=== PATIENT | female | born 1985 | race Hispanic/Latino ===

== ENCOUNTER 2018-06-29 20:40 | Emergency (ER) | payer OTHER, MEDICARE ==
[2018-06-29] MEDS ORDERED: CEFTRIAXONE SODIUM 500 MG VIAL ONE (21:02)
[2018-06-29] MEDS ORDERED: AZITHROMYCIN 250 MG TABLET PO ONE (21:03)
[2018-06-29] MEDS ORDERED: LIDOCAINE HCL MPF 1% 5ML VIAL ONE (21:03)
[2018-06-29 21:05] LABS: APPEARANCE,URINE Clear (CLEAR); BILIRUBIN,URINE Negative (NEGATIVE); COLOR,URINE Yellow (YELLOW); GLUCOSE, URINE (UA) Negative (NEGATIVE); KETONES,URINE Negative (NEGATIVE); LEUKOCYTE ESTERASE ,URINE Negative (NEGATIVE); NITRATE,URINE Negative (NEGATIVE); OCCULT BLOOD,URINE Negative (NEGATIVE); PROTEIN,URINE Negative (NEGATIVE); UROBILINOGEN,URINE 0.2 mg/dL (0.2-1.0)
[2018-06-29 21:14] LABS: AMPHET/METH SCREEN,URINE NEGATIVE (NEGATIVE); BARBITURATE SCREEN, URINE POSITIVE (NEGATIVE); BENZODIAZEPINES SCREEN,URINE NEGATIVE (NEGATIVE); CANNABINOID SCREEN,URINE NEGATIVE (NEGATIVE); COCAINE SCREEN,URINE NEGATIVE (NEGATIVE); HCG,QUAL RESULT NEGATIVE (NEGATIVE); OPIATE SCREEN,URINE NEGATIVE (NEGATIVE); PHENCYCLIDINE SCREEN,URINE NEGATIVE (NEGATIVE)
== END 2018-06-29 22:00 | disposition home or self-care (01) ==
LOC: EDH 20:40
DX: N34.1 Nonspecific urethritis (principal); J45.909 Unspecified asthma, uncomplicated; G43.909 Migraine, unspecified, not intractable, without status migrainosus; Z87.891 Personal history of nicotine dependence
CPT/HCPCS: 80305; 81003; 81025; 87486; 87797; 96372; 99284; J0696; J3490

== ENCOUNTER 2018-09-04 19:21 | Emergency (ER) | payer OTHER, MEDICARE ==
[2018-09-04] MEDS ORDERED: ONDANSETRON HCL 4 MG/2 ML VIAL ONE (19:46)
[2018-09-04] MEDS ORDERED: KETOROLAC TROMETHAMINE 30MG/ML ONE (19:46)
[2018-09-04 19:48] LABS: BASOPHILS % (AUTO) 0.4 % (0.0-5.0); EOSINOPHILS % (AUTO) 0.8 % (0.0-8.0); HEMATOCRIT 42.9 % (36-48); LYMPHOCYTES % (AUTO) 7.7 % (21.0-51.0); MEAN CORPUSCULAR HGB CONC 32.9 g/dL (32.0-36.0); MEAN CORPUSCULAR VOLUME 85.3 fL (79-99); MONOCYTES % (AUTO) 2.6 % (3.0-13.0); NEUTROPHILS % (AUTO) 88.5 % (40.0-77.0); PLATELET COUNT (AUTO) 220 K/uL (130-400); RED BLOOD CELL COUNT(AUTO) 5.03 MIL/uL (4.00-5.50); RED CELL DISTRIBUTION WIDTH 14.7 % (11.0-15.5); WHITE BLOOD COUNT (AUTO) 12.9 K/uL (4.8-10.8)
[2018-09-04 19:49] LABS: APPEARANCE,URINE Clear (CLEAR); BILIRUBIN,URINE Negative (NEGATIVE); COLOR,URINE Yellow (YELLOW); GLUCOSE, URINE (UA) Negative (NEGATIVE); KETONES,URINE Negative (NEGATIVE); LEUKOCYTE ESTERASE ,URINE Small (NEGATIVE); NITRATE,URINE Negative (NEGATIVE); OCCULT BLOOD,URINE Trace (NEGATIVE); PROTEIN,URINE Negative (NEGATIVE); UROBILINOGEN,URINE 0.2 mg/dL (0.2-1.0)
[2018-09-04 19:52] LABS: HCG,QUAL RESULT NEGATIVE (NEGATIVE)
[2018-09-04 20:07] LABS: CREATININE 0.8 mg/dL (0.5-1.5); POTASSIUM 4.2 mmol/L (3.5-5.1)
[2018-09-04 20:09] LABS: ALBUMIN 3.8 g/dL (3.5-5.0); BILIRUBIN,TOTAL 0.4 mg/dL (0.2-1.0); RBC,URINE 0-1 /HPF (0-1); TOTAL PROTEIN, SERUM 8.3 g/dL (6.0-8.3)
[2018-09-04 20:10] LABS: BACTERIA,URINE Few /HPF (None Seen); WBC,URINE 0-1 /HPF (0-1)
[2018-09-04] MEDS ORDERED: SODIUM CHLORIDE 0.9% 1000ML 1,000 ML IV ONE (20:51)
[2018-09-04] MEDS ORDERED: DICYCLOMINE HCL 10 MG/ML 2ML AMP IM ONE (20:51)
== END 2018-09-04 22:04 | disposition home or self-care (01) ==
LOC: EDH 19:21
DX: K52.9 Noninfective gastroenteritis and colitis, unspecified (principal); J45.909 Unspecified asthma, uncomplicated; Z72.0 Tobacco use; Z90.49 Acquired absence of other specified parts of digestive tract
CPT/HCPCS: 36415; 74176; 80053; 81001; 81025; 82150; 83690; 85025; 93005; 96361; 96372; 96374; 96375; 99284; J0500; J1885; J2405; J7030

== ENCOUNTER 2018-12-14 19:58 | Emergency (ER) | payer OTHER, MEDICARE ==
[2018-12-14] MEDS ORDERED: MAG HYDROX/AL HYDROX/SIMETH ES 30 ML SUSP UDCUP ONE (20:44)
[2018-12-14] MEDS ORDERED: LIDOCAINE HCL 2% VISCOUS 15 ML UDCUP ONE (20:44)
[2018-12-14 21:06] LABS: BASOPHILS % (AUTO) 0.6 % (0.0-5.0); EOSINOPHILS % (AUTO) 0.9 % (0.0-8.0); HEMATOCRIT 37.7 % (36-48); LYMPHOCYTES % (AUTO) 26.2 % (21.0-51.0); MEAN CORPUSCULAR HEMOGLOBIN 29.5 pg (27.0-33.0); MEAN CORPUSCULAR HGB CONC 34.9 g/dL (32.0-36.0); MEAN CORPUSCULAR VOLUME 84.6 fL (79-99); NEUTROPHILS % (AUTO) 63.3 % (40.0-77.0); NUCLEATED RED BLOOD CELLS 0.1 % (0.0-0.19); PLATELET COUNT (AUTO) 263 K/uL (130-400); RED BLOOD CELL COUNT(AUTO) 4.46 MIL/uL (4.00-5.50); RED CELL DISTRIBUTION WIDTH 14.6 % (11.0-15.5); WHITE BLOOD COUNT (AUTO) 8.4 K/uL (4.8-10.8)
[2018-12-14 21:16] LABS: CREATININE 0.7 mg/dL (0.5-1.5); POTASSIUM 3.3 mmol/L (3.5-5.1)
[2018-12-14 21:19] LABS: APPEARANCE,URINE CLEAR (CLEAR); BILIRUBIN,URINE NEGATIVE (NEGATIVE); COLOR,URINE YELLOW (YELLOW); GLUCOSE, URINE (UA) NEGATIVE (NEGATIVE); KETONES,URINE NEGATIVE (NEGATIVE); LEUKOCYTE ESTERASE ,URINE NEGATIVE (NEGATIVE); NITRATE,URINE NEGATIVE (NEGATIVE); OCCULT BLOOD,URINE NEGATIVE (NEGATIVE); PROTEIN,URINE TRACE mg/dL (NEGATIVE); UROBILINOGEN,URINE 0.2 mg/dL (0.2-1.0)
[2018-12-14 21:21] LABS: ALBUMIN 3.8 g/dL (3.5-5.0); BILIRUBIN,TOTAL 0.4 mg/dL (0.2-1.0); TOTAL PROTEIN, SERUM 7.5 g/dL (6.0-8.3)
[2018-12-14 21:25] LABS: HCG,QUAL RESULT NEGATIVE (NEGATIVE)
[2018-12-14 22:03] LABS: BACTERIA,URINE Few /HPF (None Seen); MUCUS,URINE Moderate LPF (None Seen); RBC,URINE 0-1 /HPF (0-1); SQUAMOUS EPITHELIAL CELL,UR Few /HPF (0-2); WBC,URINE 0-1 /HPF (0-1)
[2018-12-14] MEDS ORDERED: FAMOTIDINE/PF 20 MG/2 ML VIAL IV ONE (22:44)
[2018-12-14] MEDS ORDERED: KETOROLAC TROMETHAMINE 15MG/ML ONE (22:44)
== END 2018-12-14 23:26 | disposition home or self-care (01) ==
LOC: EDH 19:58
DX: K29.00 Acute gastritis without bleeding (principal); J45.909 Unspecified asthma, uncomplicated; G43.909 Migraine, unspecified, not intractable, without status migrainosus; Z90.49 Acquired absence of other specified parts of digestive tract
CPT/HCPCS: 36415; 80053; 81001; 81025; 83690; 85025; 96361; 96374; 96375; 99284; J1885; J3490

== ENCOUNTER 2019-02-06 14:32 | Emergency (ER) | payer OTHER, MEDICARE ==
[2019-02-06 15:22] LABS: BASOPHILS % (AUTO) 0.2 % (0.0-5.0); EOSINOPHILS % (AUTO) 0.5 % (0.0-8.0); LYMPHOCYTES % (AUTO) 13.9 % (21.0-51.0); MEAN CORPUSCULAR HEMOGLOBIN 28.6 pg (27.0-33.0); MEAN CORPUSCULAR HGB CONC 34.1 g/dL (32.0-36.0); NEUTROPHILS % (AUTO) 80.4 % (40.0-77.0); PLATELET COUNT (AUTO) 215 K/uL (130-400); RED BLOOD CELL COUNT(AUTO) 4.41 MIL/uL (4.00-5.50); RED CELL DISTRIBUTION WIDTH 14.3 % (11.0-15.5); WHITE BLOOD COUNT (AUTO) 7.5 K/uL (4.8-10.8)
[2019-02-06 15:24] LABS: APPEARANCE,URINE SL CLOUDY (CLEAR); BILIRUBIN,URINE MODERATE (NEGATIVE); COLOR,URINE YELLOW (YELLOW); GLUCOSE, URINE (UA) NEGATIVE (NEGATIVE); KETONES,URINE 5 mg/dL (NEGATIVE); LEUKOCYTE ESTERASE ,URINE NEGATIVE (NEGATIVE); NITRATE,URINE NEGATIVE (NEGATIVE); OCCULT BLOOD,URINE TRACE-INTACT (NEGATIVE); PROTEIN,URINE 30 mg/dL (NEGATIVE)
[2019-02-06 15:26] LABS: HCG,QUAL RESULT NEGATIVE (NEGATIVE)
[2019-02-06 15:32] LABS: AMPHET/METH SCREEN,URINE NEGATIVE (NEGATIVE); BARBITURATE SCREEN, URINE POSITIVE (NEGATIVE); BENZODIAZEPINES SCREEN,URINE NEGATIVE (NEGATIVE); CANNABINOID SCREEN,URINE NEGATIVE (NEGATIVE); COCAINE SCREEN,URINE NEGATIVE (NEGATIVE); OPIATE SCREEN,URINE POSITIVE (NEGATIVE); PHENCYCLIDINE SCREEN,URINE NEGATIVE (NEGATIVE)
[2019-02-06 15:34] LABS: ALBUMIN 3.3 g/dL (3.5-5.0); BILIRUBIN,TOTAL 0.8 mg/dL (0.2-1.0); CREATININE 0.8 mg/dL (0.5-1.5); TOTAL PROTEIN, SERUM 6.9 g/dL (6.0-8.3)
[2019-02-06 15:42] LABS: RBC,URINE 0-1 /HPF (0-1)
[2019-02-06] MEDS ORDERED: MAGNESIUM OXIDE 400 MG TABLET PO ONE (15:42)
[2019-02-06] MEDS ORDERED: ONDANSETRON HCL 4 MG/2 ML VIAL ONE (15:42)
[2019-02-06 15:43] LABS: BACTERIA,URINE Few /HPF (None Seen); MUCUS,URINE Moderate LPF (None Seen); SQUAMOUS EPITHELIAL CELL,UR Few /HPF (0-2)
[2019-02-06] MEDS ORDERED: POTASSIUM CHLORIDE 20 MEQ ERTAB PO ONE (15:43)
[2019-02-06] MEDS ORDERED: FAMOTIDINE/PF 20 MG/2 ML VIAL IV ONE (15:43)
[2019-02-09 07:20] LABS: HEPATITIS A ANTIBODY IGM Negative (Negative); HEPATITIS B CORE IGM Negative (Negative); HEPATITIS Bs ANTIGEN SCREEN P Negative (Negative)
== END 2019-02-06 17:30 | disposition home or self-care (01) ==
LOC: EDH 14:32
DX: K75.9 Inflammatory liver disease, unspecified (principal); E87.6 Hypokalemia; R10.13 Epigastric pain; R11.2 Nausea with vomiting, unspecified; J45.909 Unspecified asthma, uncomplicated; G43.909 Migraine, unspecified, not intractable, without status migrainosus; Z90.49 Acquired absence of other specified parts of digestive tract; Z79.899 Other long term (current) drug therapy
CPT/HCPCS: 36415; 76705; 80053; 80074; 80305; 81001; 81025; 83690; 85025; 96374; 96375; 99285; J2405; J3490

== ENCOUNTER 2019-02-25 19:29 | Emergency (ER) | payer OTHER, MEDICARE ==
[2019-02-25] MEDS ORDERED: ONDANSETRON ODT 4 MG TAB ONE (20:34)
[2019-02-25] MEDS ORDERED: DiphenhydrAMINE HCL 50 MG/ML VIAL ONE (20:56)
[2019-02-25] MEDS ORDERED: KETOROLAC TROMETHAMINE 15MG/ML ONE (21:00)
== END 2019-02-25 22:11 | disposition home or self-care (01) ==
LOC: EDH 19:29
DX: R51 Headache (principal); G89.29 Other chronic pain; J45.909 Unspecified asthma, uncomplicated; Z90.49 Acquired absence of other specified parts of digestive tract; Z72.0 Tobacco use; Z88.6 Allergy status to analgesic agent
CPT/HCPCS: 70450; 81025; 96372 ×2; 99285; J1200; J1885

== ENCOUNTER 2019-05-27 17:08 | Emergency (ER) | payer OTHER, MEDICARE ==
[2019-05-27] MEDS ORDERED: RANITIDINE HCL 15 MG/1 ML ONE (18:18)
[2019-05-27] MEDS ORDERED: ONDANSETRON ODT 4 MG TAB ONE (18:19)
== END 2019-05-27 18:59 | disposition left against medical advice (07) ==
LOC: EDH 17:08
DX: R10.84 Generalized abdominal pain (principal); R19.7 Diarrhea, unspecified; R11.10 Vomiting, unspecified; J45.909 Unspecified asthma, uncomplicated; G43.909 Migraine, unspecified, not intractable, without status migrainosus; Z88.6 Allergy status to analgesic agent; Z90.49 Acquired absence of other specified parts of digestive tract

== ENCOUNTER 2021-11-26 10:55 | Emergency (ER) | payer OTHER, MEDICARE ==
[~2021-11-26] VITALS: Ht 165.1 cm; Wt 70.3 kg
[2021-11-26 11:48] LABS: APPEARANCE,URINE Clear (CLEAR); BILIRUBIN,URINE Negative (NEGATIVE); COLOR,URINE Yellow (YELLOW); GLUCOSE, URINE (UA) Negative (NEGATIVE); KETONES,URINE Negative (NEGATIVE); LEUKOCYTE ESTERASE ,URINE Negative (NEGATIVE); NITRATE,URINE Negative (NEGATIVE); OCCULT BLOOD,URINE Trace (NEGATIVE); PROTEIN,URINE Negative (NEGATIVE); UROBILINOGEN,URINE 0.2 mg/dL (0.2-1.0)
[2021-11-26 11:50] LABS: HCG,QUAL RESULT NEGATIVE (NEGATIVE)
[2021-11-26 12:00] LABS: BACTERIA,URINE Rare /HPF (None Seen); MUCUS,URINE Rare LPF (None Seen); RBC,URINE 0-1 /HPF (0-1); SQUAMOUS EPITHELIAL CELL,UR Rare /HPF (0-2); WBC,URINE 0-1 /HPF (0-1)
[2021-11-26] MEDS ORDERED: CYCLOBENZAPRINE HCL 10 MG TABLET PO SCH (12:00)
[2021-11-26] MEDS ORDERED: KETOROLAC 30MG VIAL (30MG/ML) IV SCH (12:00)
[2021-11-26] MEDS ORDERED: PROMETHAZINE HCL 25 MG/ML 1ML AMPULE IM SCH (12:00)
[2021-11-26] MEDS ORDERED: 0.9%NACL 1000ML 1,000 ML IV SCH (12:00)
[2021-11-26 12:07] LABS: BASOPHILS % (AUTO) 0.4 % (0.0-5.0); EOSINOPHILS % (AUTO) 0.7 % (0.0-8.0); HEMATOCRIT 38.3 % (36-48); LYMPHOCYTES % (AUTO) 36.7 % (21.0-51.0); MEAN CORPUSCULAR HEMOGLOBIN 30.8 pg (27.0-33.0); MEAN CORPUSCULAR HGB CONC 33.2 g/dL (32.0-36.0); MEAN CORPUSCULAR VOLUME 92.7 fL (79-99); MONOCYTES % (AUTO) 8.1 % (3.0-13.0); NEUTROPHILS % (AUTO) 53.8 % (40.0-77.0); PLATELET COUNT (AUTO) 227 K/uL (130-400); RED BLOOD CELL COUNT(AUTO) 4.13 MIL/uL (4.00-5.50); RED CELL DISTRIBUTION WIDTH 13.2 % (11.0-15.5); WHITE BLOOD COUNT (AUTO) 7.5 K/uL (4.8-10.8)
[2021-11-26 12:22] LABS: AMPHET/METH SCREEN,URINE NEGATIVE (NEGATIVE); BARBITURATE SCREEN, URINE POSITIVE (NEGATIVE); BENZODIAZEPINES SCREEN,URINE POSITIVE (NEGATIVE); CANNABINOID SCREEN,URINE POSITIVE (NEGATIVE); COCAINE SCREEN,URINE NEGATIVE (NEGATIVE); OPIATE SCREEN,URINE NEGATIVE (NEGATIVE); PHENCYCLIDINE SCREEN,URINE NEGATIVE (NEGATIVE)
[2021-11-26 12:45] LABS: CREATININE 0.7 mg/dL (0.5-1.5); POTASSIUM 3.3 mmol/L (3.5-5.1)
[2021-11-26 12:50] LABS: ALBUMIN 3.4 g/dL (3.5-5.0); BILIRUBIN,TOTAL 0.1 mg/dL (0.2-1.0); TOTAL PROTEIN, SERUM 6.9 g/dL (6.0-8.3)
[2021-11-26] MEDS ORDERED: RIZA10TA23 PO (13:00)
[2021-11-26] MEDS ORDERED: CYCL10TA16 PO (13:00)
[2021-11-26] MEDS ORDERED: NAPR-1180 PO (13:00)
[2021-11-26] MEDS ORDERED: POTASSIUM BICARB/CIT AC 25 MEQ TABLET.EFF PO ONE (13:00)
[2021-11-26 13:19] VITALS: BP 115/54
== END 2021-11-26 13:20 | disposition home or self-care (01) ==
LOC: EDH 10:55
DX: G43.909 Migraine, unspecified, not intractable, without status migrainosus (principal); E87.6 Hypokalemia; R11.2 Nausea with vomiting, unspecified; F19.10 Other psychoactive substance abuse, uncomplicated; Z79.1 Long term (current) use of non-steroidal anti-inflammatories (NSAID); Z88.5 Allergy status to narcotic agent; Z88.8 Allergy status to other drugs, medicaments and biological substances; Z90.49 Acquired absence of other specified parts of digestive tract
CPT/HCPCS: 36415; 80053; 80305; 81001; 81025; 85025; 96372; 96374; 99284; J1885 ×2; J2550; J7030